=== PATIENT | female | born 1990 | race Caucasian/White ===

== ENCOUNTER 2017-09-02 10:35 | Emergency (ER) | payer MEDICAID ==
[~2017-09-02] VITALS: Ht 157.5 cm; Wt 66.1 kg
[~2017-09-02 10:35] MED LIST: DENIES; IBUP-1542 PO
[2017-09-02 10:40] VITALS: Ht 157.5 cm; Wt 66.1 kg
--- NOTE | 2017-09-02 11:24 | ERD ---
ER Documentation Chief Complaint Chief Complaint ortega x 2 weeks; lightheaded; nausea HPI 26y/o female patient with history of migraines,presents to the emergency department with her c/o headache located fundal area, that started 1 week ago, but is getting progressively worse for the last 2 days. pain is dull, rated 6/10, radiated to occipital area. The symptoms are associated with mild nausea. Denies visual problems, fever, chills, V/D, no weakness or tingling. Positive history of previous episodes. Treatment attempted: Ibuprofen 400 mg without improvement of her symptoms. The patient is status that she has been under a lot of stress at work ROS SYSTEMIC symptoms: no fever, chills, no night sweats, no weight loss EYE symptoms: No blurred vision, no eye discharge OTOLARYNGEAL symptoms: No hearing loss. No ear pain, no sore throat CARDIOVASCULAR symptoms: No chest pain or discomfort, no palpitations. PULMONARY symptoms: No dyspnea, no cough, no wheezing. GASTROINTESTINAL symptoms: No abdominal pain, no nausea, no vomiting, no diarrhea MUSCULOSKELETAL symptoms: No arthralgias, no muscle aches. NEUROLOGY symptoms: No confusion, no syncope, no numbness or tingling. SKIN no rashes All systems reviewed and are negative except as per history of present illness. Medications Home Meds Active Scripts Sumatriptan Succinate* (Sumatriptan Succinate*) 50 Mg Tablet, 50 MG PO BID Y for MIGRAINE HEADACHE, #10 TAB May repeat after 2 hours if needed; MAX 200 mg/24 hours Prov:JONO LEIVA MD 09/02/17 Ibuprofen* (Motrin*) 600 Mg Tab, 600 MG PO Q6, #15 TAB Prov:DIVINA OROZCO NP 02/22/16 Reported Medications [Denies] No Conflict Check 04/18/10 Allergies Allergies: Coded Allergies: No Known Drug Allergies (Verified Allergy, Mild, 09/02/17) PMhx/Soc History of Surgery: No Anesthesia Reaction: No Hx Neurological Disorder: No Hx Respiratory Disorders: Yes (POSSIBLE ASTHMA) Hx Cardiac Disorders: No Hx Psychiatric Problems: No Hx Miscellaneous Medical Probl: No Hx Alcohol Use: No Hx Substance Use: No Hx Tobacco Use: No FmHx Denies family history of hypertension, diabetes, coronary artery disease or cancer Physical Exam Vitals Vital Signs Date Time Temp Pulse Resp B/P Pulse Ox O2 Delivery O2 Flow Rate FiO2 09/02/17 10:40 97.4 78 18 138/76 97 Physical Exam Patient is in no acute distress, vital signs stable. Alert and fully oriented. EYES: PERRLA, EOMI, Sclera and conjunctiva appear normal. EARS: Canals clear, tympanic membranes WNL THROAT: Normal oropharynx. NECK: Supple, No lymphadenopathy. Full ROM without pain or tenderness. HEART: RRR, no rubs, murmurs, clicks or gallops. LUNGS: Clear to auscultation. ABDOMEN: Soft, non-tender without masses or hepatosplenomegaly. EXTREMITIES: No edema bilaterally. MUSC: Full ROM, no deformity, normal back exam Neuro: Grossly intact, motor or sensory deficit Results 24 hrs Laboratory Tests Test 09/02/17 11:40 Urine Color YELLOW Urine Clarity CLOUDY Urine pH 7.0 Urine Specific [place] 1.015 Urine Ketones NEGATIVEmg/dL Urine Nitrite NEGATIVEmg/dL Urine Bilirubin NEGATIVEmg/dL Urine Urobilinogen NEGATIVEmg/dL Urine Leukocyte Esterase NEGATIVELeu/ul Urine Microscopic RBC 2/HPF Urine Microscopic WBC 6/HPF Urine Squamous Epithelial Cells FEW/HPF Urine Amorphous Crystals MANY/HPF Urine Mucus FEW/HPF Urine Hemoglobin NEGATIVEmg/dL Urine Glucose NEGATIVEmg/dL Urine Total Protein NEGATIVEmg/dl Current Medications Medications (Trade) Dose Ordered Sig/Marisol Route PRN Reason Start Time Stop Time Status Last Admin Dose Admin Ketorolac Tromethamine (Toradol) 30 mg ONCE STAT IM 09/02/17 11:28 09/02/17 11:32 DC 09/02/17 11:41 Ondansetron HCl (Zofran Odt) 4 mg ONCE STAT ODT 09/02/17 11:28 09/02/17 11:32 DC 09/02/17 11:41 Procedures/MDM 26y/o female patient history of migraines, presents to the ED c/o migraine headache for 7 days. Vital signs stable, Physical exam unremarkable, neurovascular exam intact. Differential diagnosis include but not limited to: Tension headache, sinusitis, migraine, low suspicion for stroke, tumor. Physical examination and clinical presentation consistent most likely with migraine headache. During the ED course the patient received treatment with Toradol and Zofran presenting overall improvement of the symptoms. Results and clinical impression discussed with patient who agrees with management. The patient will be discharged home with a Rx for Imitrex If symptoms persist, worsen or new symptoms develop, then patient is instructed to follow-up with the primary care provider. If the patient is unable to see the primary care provider, then return to the ED immediately. Departure Diagnosis: Primary Impression: Migraine headache Additional Impression: Stressful job Condition: Stable Additional Instructions: Thank you very much for allowing us to participate in your care. Your health and safety is our top priority at [facility]. Have prescriptions filled and follow precisely the directions on the label. Follow-up with primary care provider during the next 4 days and bring all the information and medications prescribed. If illness has not improved in 2 days, then make an appointment with primary care provider. If the provider is unavailable, return to the Emergency Department immediately. JONO LEIVA MD Sep 02, 2017 11:24
[2017-09-02] MEDS ORDERED: ONDANSETRON (ODT) 4 MG TAB ODT STA (11:28)
[2017-09-02] MEDS ORDERED: KETOROLAC 30 MG INJ IM STA (11:28)
[2017-09-02] MEDS ORDERED: SUMA50TA3 PO (12:13)
== END 2017-09-02 12:21 | disposition home or self-care (01) ==
LOC: FTE 10:35
DX: G43.909 Migraine, unspecified, not intractable, without status migrainosus (principal); Z56.89 Other problems related to employment
CPT/HCPCS: 81001; 96372; J1885; Z7502; Z7610

== ENCOUNTER 2018-10-31 02:29 | Emergency (ER) | payer MEDICAID ==
[~2018-10-31] VITALS: Wt 69.0 kg
[~2018-10-31 02:29] MED LIST changes: +SUMA50TA3 PO
[2018-10-31] MEDS ORDERED: ONDANSETRON 4 MG INJ IV STA (03:41)
[2018-10-31] MEDS ORDERED: morphine 4 MG/ML VIAL IV STA (03:41)
[2018-10-31] MEDS ORDERED: SOD CHLORIDE 0.9% 1,000 ML IV STA (03:41)
[2018-10-31] MEDS ORDERED: ACET500C5 PO (05:24)
[2018-10-31] MEDS ORDERED: ONDA4TAB14 PO (05:24)
[2018-10-31 05:45] VITALS: BP 116/71; PULSE 69; RESP 20
--- NOTE | 2018-10-31 05:49 | ERD ---
ER Documentation Chief Complaint Chief Complaint bib self, cc: n/v x 1 day, works in assisted living with other people n/v HPI 27-year-old female patient with no significant past medical history presents to the ED stating that she works at [employer], and has had 2 days of vomiting and diarrhea similar to patient's at the facility. Patient has had a few episodes of nonbilious nonbloody vomiting, nonmucoid nonbloody diarrhea. Patient reports that she is eating appropriately however has left-sided abdominal pain. States that her last menstruation was on October 01, 2018. Denies any dysuria, urgency, frequency, hematuria, the patient, chest pain, shortness of breath. ROS All systems reviewed and are negative except as per history of present illness. Medications Home Meds Active Scripts Acetaminophen* (Tylophen*) 500 Mg Capsule, 1 CAP PO Q6H PRN for PAIN AND OR ELEVATED TEMP, #20 CAP Prov:BELKIS CISNEROS PA-C 10/31/18 Ondansetron (Ondansetron Odt) 4 Mg Tab.rapdis, 4 MG PO Q6H PRN for NAUSEA AND/OR VOMITING, #10 TAB Prov:BELKIS CISNEROS PA-C 10/31/18 Sumatriptan Succinate* (Sumatriptan Succinate*) 50 Mg Tablet, 50 MG PO BID PRN for MIGRAINE HEADACHE, #10 TAB May repeat after 2 hours if needed; MAX 200 mg/24 hours Prov:JONO LEIVA MD 09/02/17 Ibuprofen* (Motrin*) 600 Mg Tab, 600 MG PO Q6, #15 TAB Prov:DIVINA OROZCO NP 02/22/16 Reported Medications [Denies] No Conflict Check 04/18/10 Allergies Allergies: Coded Allergies: No Known Drug Allergies (Verified Allergy, Mild, 09/02/17) PMhx/Soc Medical and Surgical Hx: pt denies Medical Hx, pt denies Surgical Hx History of Surgery: No Anesthesia Reaction: No Hx Neurological Disorder: No Hx Respiratory Disorders: Yes (POSSIBLE ASTHMA) Hx Cardiac Disorders: No Hx Psychiatric Problems: No Hx Miscellaneous Medical Probl: No Hx Alcohol Use: No Hx Substance Use: No Hx Tobacco Use: No Smoking Status: Never smoker FmHx Family History: No diabetes, No coronary disease Physical Exam Vitals Vital Signs Date Temp Pulse Resp B/P (MAP) Pulse Ox O2 O2 Flow FiO2 Time Delivery Rate 10/31/18 99.2 84 19 132/89 98 02:31 (103) Physical Exam Const: Myy-tbt-[id number], well-nourished. In no acute distress. Head: Atraumatic, normocephalic Eyes: Normal Conjunctiva without injection. No purulent discharge. ENT: Normal external ear, nose. Moist oropharynx without tonsillar exudates. Non-erythematous pharynx. Uvula midline. No drooling. No trismus. Neck: No cervical midline tenderness. Full range of motion. No meningismus. No cervical lymphadenopathy. No JVD. Resp: Clear to auscultation bilaterally. No wheezing, rhonchi, rales, or crackles. No accessory muscle use. No retractions. Cardio: Regular rate and rhythm. No murmurs, rubs or gallops. Abd: Soft, left pelvic tenderness, non distended. Normal bowel sounds. No palpable masses. No rebound tenderness. No guarding. Negative McBurney's point. Negative psoas sign. Negative obturator sign. Skin: No petechiae or rashes Back: No midline tenderness. No CVA tenderness. Ext: No cyanosis, or edema. Neur: Awake and alert. Normal gait. Normal coordination. Psych: Normal Mood and Affect Result Diagram: 10/31/18 0356 10/31/18 0356 Results 24 hrs Laboratory Tests Test 10/31/18 03:56 10/31/18 03:57 White Blood Count 7.4 10^3/ul Red Blood Count 4.21 10^6/ul Hemoglobin 13.9 g/dl Hematocrit 40.8 % Mean Corpuscular Volume 96.9 fl Mean Corpuscular Hemoglobin 33.0 pg Mean Corpuscular Hemoglobin Concent 34.1 g/dl Red Cell Distribution Width 11.9 % Platelet Count 219 10^3/UL Mean Platelet Volume 10.6 fl Immature Granulocytes % 0.300 % Neutrophils % 59.3 % Lymphocytes % 32.5 % Monocytes % 6.0 % Eosinophils % 1.2 % Basophils % 0.7 % Nucleated Red Blood Cells % 0.0 /100WBC Immature Granulocytes # 0.020 10^3/ul Neutrophils # 4.4 10^3/ul Lymphocytes # 2.4 10^3/ul Monocytes # 0.4 10^3/ul Eosinophils # 0.1 10^3/ul Basophils # 0.1 10^3/ul Nucleated Red Blood Cells # 0.0 10^3/ul Urine Color STRAW Urine Clarity CLEAR Urine pH 6.0 Urine Specific [place] 1.004 Urine Ketones NEGATIVE mg/dL Urine Nitrite NEGATIVE mg/dL Urine Bilirubin NEGATIVE mg/dL Urine Urobilinogen NEGATIVE mg/dL Urine Leukocyte Esterase NEGATIVE Victor[place]/ul Urine Hemoglobin NEGATIVE mg/dL Urine Glucose NEGATIVE mg/dL Urine Total Protein NEGATIVE mg/dl Sodium Level 141 mmol/L Potassium Level 4.1 mmol/L Chloride Level 102 mmol/L Carbon Dioxide Level 29 mmol/L Anion Gap 10 Blood Urea Nitrogen 13 mg/dl Creatinine 0.49 mg/dl Est Glomerular Filtrat Rate mL/min > 60 mL/min Glucose Level 103 mg/dl Calcium Level 9.4 mg/dl Total Bilirubin 0.5 mg/dl Direct Bilirubin 0.00 mg/dl Indirect Bilirubin 0.5 mg/dl Aspartate Amino Transf (AST/SGOT) 24 IU/L Alanine Aminotransferase (ALT/SGPT) 27 IU/L Alkaline Phosphatase 47 IU/L Total Protein 7.8 g/dl Albumin 4.5 g/dl Globulin 3.30 g/dl Albumin/Globulin Ratio 1.36 Lipase 59 U/L POC Beta HCG, Qualitative NEGATIVE Current Medications Medications Dose Sig/Marisol Start Time Status Last (Trade) Ordered Route PRN Stop Time Admin Dose Reason Admin Sodium 1,000 ml @ Q1H STAT 10/31/18 DC 10/31/18 Chloride 1,000 mls/hr IV 03:41 10/31/18 03:59 04:40 Morphine 4 mg ONCE STAT 10/31/18 DC 10/31/18 Sulfate IV 03:41 10/31/18 04:00 (morphine) 03:43 Ondansetron 4 mg ONCE STAT 10/31/18 DC 10/31/18 HCl (Zofran IV 03:41 10/31/18 04:00 Inj) 03:43 Procedures/MDM 27-year-old female patient with no significant past medical history presents to ED complaining of pain, diarrhea, left pelvic pain. Patient is afebrile and nontoxic-appearing. Patient was further worked up with CBC, CMP, lipase, UA, pelvic ultrasound. At this time since patient does not have severe abdominal pain, there is low suspicion for acute abdomen, CT of the abdomen and pelvis was considered however the risks of radiation outweigh the benefits. Patient's pain and symptoms have improved after treatment with 1 L normal saline, 4 mg IV Zofran, 4 mg IV morphine. CBC: No leukocytosis. No e/o of systemic infection. No e/o anemia. CMP: No e/o severe acidosis, alkalosis, renal failure, diabetic ketoacidosis, liver disease Lipase within normal limits. Urine: No leukocyte esterase, no nitrites, no hematuria. Urine : Negative IMPRESSION: 1. Unremarkable uterus. Intrauterine device in good location. 2. Normal size ovaries without ultrasonic evidence of ovarian torsion. 2.3 cm left ovarian cyst. 3. Trace fluid in the cul-de-sac. Patient has a left ovarian cyst at 2.3 cm in size. Patient's vomiting and diarrhea likely secondary to viral etiology. Patient has no leukocytosis. Low suspicion for diverticulitis, perforated bowel. She currently has no abdominal pain. Low suspicion for ectopic , ovarian torsion, gastritis, GERD, peptic ulcer disease, cholecystitis, choledocholithiasis, cholangitis, pancreatitis, appendicitis, bowel obstruction, ileus, volvulus, nephrolithiasis, pyelonephritis, hepatitis, perforated viscus, diverticulitis, strangulated/incarcerated hernia, DKA, acute abdomen, mesenteric ischemia or other emergent conditions. Diagnosis: Abdominal pain, Vomiting and diarrhea Discharge medications: Tylenol, Zofran Follow up with primary care physician in 1-2 days. Instructed patient to return to the ED sooner for any worsening symptoms. Patient's questions were answered. Patient is hemodynamically stable. Patient understood and agreed with discharge plan. Patient discharged stable. Disclaimer: Inadvertent spelling and grammatical errors are likely due to EHR/dictation software use and do not reflect on the overall quality of patient care. Also, please note that the electronic time recorded on this note does not necessarily reflect the actual time of the patient encounter. Departure Diagnosis: Primary Impression: Abdominal pain Abdominal location: unspecified location Qualified Codes: R10.9 - Unspecified abdominal pain Additional Impression: Vomiting and diarrhea Condition: Stable Patient Instructions: What Are Ovarian Cysts?, Self-Care for Vomiting and Maday rrhea, Diet, Vomiting Or Diarrhea [6Yr-Adult] Referrals: COMMUNITY CLINICS YOU HAVE RECEIVED A MEDICAL SCREENING EXAM AND THE RESULTS INDICATE THAT YOU DO NOT HAVE A CONDITION THAT REQUIRES URGENT TREATMENT IN THE EMERGENCY DEPARTMENT. FURTHER EVALUATION AND TREATMENT OF YOUR CONDITION CAN WAIT UNTIL YOU ARE SEEN IN YOUR DOCTORS OFFICE WITHIN THE NEXT 1-2 DAYS. IT IS YOUR RESPONSIBILITY TO MAKE AN APPOINTMENT FOR FOLOW-UP CARE. IF YOU HAVE A PRIMARY DOCTOR --you should call your primary doctor and schedule an appointment IF YOU DO NOT HAVE A PRIMARY DOCTOR YOU CAN CALL OUR PHYSICIAN REFERRAL HOTLINE AT IF YOU CAN NOT AFFORD TO SEE A PHYSICIAN YOU CAN CHOSE FROM THE FOLLOWING [facility] [address] [facility]. [facility] [address] [facility]. [facility] [address] [facility] [facility] [address] [facility] [facility] [address] [facility]. [facility] [address] [facility]. [facility] YOU HAVE RECEIVED A MEDICAL SCREENING EXAM AND THE RESULTS INDICATE THAT YOU DO NOT HAVE A CONDITION THAT REQUIRES URGENT TREATMENT IN THE EMERGENCY DEPARTMENT. FURTHER EVALUATION AND TREATMENT OF YOUR CONDITION CAN WAIT UNTIL YOU ARE SEEN IN YOUR DOCTORS OFFICE WITHIN THE NEXT 1-2 DAYS. IT IS YOUR RESPONSIBILITY TO MAKE AN APPOINTMENT FOR FOLOW-UP CARE. IF YOU HAVE A PRIMARY DOCTOR --you should call your primary doctor and schedule and appointment IF YOU DO NOT HAVE A PRIMARY DOCTOR YOU CAN CALL OUR PHYSICIAN REFERRAL HOTLINE AT . IF YOU CAN NOT AFFORD TO SEE A PHYSICIAN YOU CAN CHOSE FROM THE FOLLOWING [facility] INSTITUTIONS: [facility] [address] [place] [address] [facility] [address] [place] [address] [facility] + [facility] [address] [place] [address] [facility]SPECIALTIES [employer] [id number] [facility] [address] [place] [address] OFFICE FAX [facility] [address] [place] [address] [address] BR[address]KS HASKINS [address] [place] [address] [address] [facility] [address], [address], [facility] [address] [address] MARINELLI, [facility] [address] [place] [address] [facility] [address] [place] [address] [address] [facility] [address] - [address] BERMAN, [facility] [address] [facility]. [address], [facility] [address] [address] MCKINLEY, [place] [address] [facility]. [address], [facility] [address] [address] CHARLES, [facility] [address] [place], [place] [id number] [facility] Hours: 8:00 am - 5:00 pm Additional Instructions: Call your primary care doctor TOMORROW for an appointment during the next 2-3 days.See the doctor sooner or return here if your condition worsens before your appointment time. BELKIS CISNEROS PA-C Oct 31, 2018 05:49
== END 2018-10-31 05:47 | disposition home or self-care (01) ==
LOC: FTE 02:29
DX: R10.9 Unspecified abdominal pain (principal); R19.7 Diarrhea, unspecified; R10.2 Pelvic and perineal pain
CPT/HCPCS: 36415; 76856; 80053; 81003; 81025; 83690; 85025; 96374; 96375; J2270; J2405; J7030; Z7502

== ENCOUNTER 2018-11-09 22:09 | Emergency (ER) | payer SELFPAY ==
[~2018-11-09] VITALS: Ht 157.5 cm; Wt 68.1 kg
[~2018-11-09 22:09] MED LIST changes: +ACET500C5 PO; +ONDA4TAB14 PO
[2018-11-09 22:13] VITALS: BP 138/69; PULSE 97; RESP 22; Ht 157.5 cm; Wt 68.1 kg
== END 2018-11-09 23:00 | disposition left against medical advice (07) ==
LOC: FTE 22:09
DX: Z53.21 Procedure and treatment not carried out due to patient leaving prior to being seen by health care provider (principal)
CPT/HCPCS: 93005

== ENCOUNTER 2019-02-04 19:32 | Emergency (ER) | payer MEDICAID ==
[~2019-02-04] VITALS: Wt 64.0 kg
[2019-02-04 19:36] VITALS: BP 140/75; PULSE 85; RESP 18; Wt 64.0 kg
--- NOTE | 2019-02-04 20:29 | ERD ---
ER Documentation Chief Complaint Chief Complaint CWP FOR 1 MO. INTERMITTENT WITH NO COUGHING. NO SOB. WORSE WITH INSPIRATION HPI History of Present Illness: Patient coming in today with complaint of chest wall pain for 1 month that is worsening. Patient reports pain is intermittent, currently 8/10. Patient describes episodes as intermittent sharp pain, but there is always discomfort present. Denies any other associated symptoms. Denies shortness of breath, palpitations, difficulty breathing. Patient also reporting intermittent hives for the past 5 days which is occurred once a day, but has occurred 4 times today. At home pharmacological/nonpharmacological treatment for symptoms: denies Denies social concerns; Denies recent foreign travel ROS All systems reviewed and are negative except as per history of present illness. Medications Home Meds Active Scripts Prednisone* (Prednisone*) 20 Mg Tab, 40 MG PO DAILY for chest wall inflammation for 4 Days, TAB Prov:HILARY ANTONIO NP 02/04/19 Naproxen* (Naprosyn*) 500 Mg Tablet, 500 MG PO BID PRN for PAIN AND/OR INFLAMMATION, #30 TAB take every 12 hours for 7 days, then take every 12 hours after 7-day. Prov:HILARY ANTONIO NP 02/04/19 Diazepam* (Diazepam*) 10 Mg Tablet, 10 MG PO QHS for chest muscle tightness, #10 TAB Prov:HILARY ANTONIO NP 02/04/19 Acetaminophen* (Tylophen*) 500 Mg Capsule, 1 CAP PO Q6H PRN for PAIN AND OR ELEVATED TEMP, #20 CAP Prov:BELKIS CISNEROS PA-C 10/31/18 Ondansetron (Ondansetron Odt) 4 Mg Tab.rapdis, 4 MG PO Q6H PRN for NAUSEA AND/OR VOMITING, #10 TAB Prov:BEKLIS CISNEROS PA-C 10/31/18 Sumatriptan Succinate* (Sumatriptan Succinate*) 50 Mg Tablet, 50 MG PO BID PRN for MIGRAINE HEADACHE, #10 TAB May repeat after 2 hours if needed; MAX 200 mg/24 hours Prov:JONO LEIVA MD 09/02/17 Ibuprofen* (Motrin*) 600 Mg Tab, 600 MG PO Q6, #15 TAB Prov:DIVINA OROZCO NP 02/22/16 Reported Medications [Denies] No Conflict Check 04/18/10 Allergies Allergies: Coded Allergies: No Known Drug Allergies (Verified Allergy, Mild, 09/02/17) PMhx/Soc Medical and Surgical Hx: pt denies Medical Hx, pt denies Surgical Hx History of Surgery: No Anesthesia Reaction: No Hx Neurological Disorder: No Hx Respiratory Disorders: Yes (POSSIBLE ASTHMA) Hx Cardiac Disorders: No Hx Psychiatric Problems: No Hx Miscellaneous Medical Probl: No Hx Alcohol Use: No Hx Substance Use: No Hx Tobacco Use: No Smoking Status: Never smoker FmHx Family History: diabetes; No coronary disease Physical Exam Vitals Physical Exam Const: No acute distress Head: Atraumatic Eyes: Normal Conjunctiva ENT: Normal External Ears, Nose and Mouth. Neck: Full range of motion. No meningismus. Resp: Clear to auscultation bilaterally Cardio: Regular rate and rhythm, no murmurs. Tenderness to palpation over midsternal and left chest and right chest. Abd: Soft, non tender, non distended. Normal bowel sounds Skin: No petechiae or rashes Back: No midline or flank tenderness; tenderness to palpation over paraspinal thoracic region Ext: No cyanosis, or edema Neur: Awake and alert Psych: Normal Mood and Affect Results 24 hrs Laboratory Tests Test 02/04/19 20:43 02/04/19 20:49 02/04/19 20:50 Urine Test NEGATIVE Urine Color YELLOW Urine Clarity CLEAR Urine pH 6.0 Urine Specific [place] 1.017 Urine Ketones NEGATIVE mg/dL Urine Nitrite NEGATIVE mg/dL Urine Bilirubin NEGATIVE mg/dL Urine Urobilinogen NEGATIVE mg/dL Urine Leukocyte Esterase NEGATIVE Victor[place]/ul Urine Hemoglobin NEGATIVE mg/dL Urine Glucose NEGATIVE mg/dL Urine Total Protein NEGATIVE mg/dl POC Beta HCG, Qualitative NEGATIVE Current Medications Medications Dose Sig/Marisol Start Time Status Last (Trade) Ordered Route PRN Stop Time Admin Dose Reason Admin Diazepam 10 mg ONCE ONCE 02/04/19 DC 02/04/19 (Valium) PO 21:00 21:04 02/04/19 21:02 Ketorolac 60 mg ONCE STAT 02/04/19 DC 02/04/19 Tromethamine IM 20:58 21:04 (Toradol) 02/04/19 20:59 6 mg ONCE ONCE 02/04/19 DC 02/04/19 Dexamethasone IM 23:00 22:45 (Decadron) 02/04/19 23:01 Procedures/MDM ED course includes a thorough examination and history. Medications: Ketorolac for pain/inflammation; Valium for muscle relaxer/anxiety; dexamethasone for hives and chest wall inflammation Imaging: --- Labs: POC hCG urine EKG completed at 1940: Rate/Rhythm: Normal Sinus Rhythm, ventricular rate 69 QRS, ST, T-waves: No changes consistent w/ acute ischemia Impression: No evidence of ischemia or arrhythmia Low suspicion for life-threatening medical emergency. Low suspicion for coronary pulmonary emergency requires hospitalization or immediate surgical intervention. Low suspicion for pulmonary embolism, acute cardiac event, pleural effusion, pneumothorax. Otherwise healthy patient presenting with constellation of symptoms likely representing uncomplicated chest wall pain secondary to work-related stress as characterized by history, physical exam findings, lab findings. Negative urine . No respiratory distress, otherwise relatively well appearing and nontoxic. At time of disposition, patient reporting significant decrease in chest wall tightness; patient was asleep upon arrival to room. Patient educated on diagnoses, prescriptions, follow-up care, return precautions. Strict return precautions given for worsening condition; questions answered discharge. Education provided for removing triggers that are causing stress. Will give patient 1 day off from work for mental health day. Continue use of antihistamines for hives at home and recommended following up with primary care doctor for referral to risk consultant. No signs of airway compromise. Disposition for discharge with followup in 2 days with PCP/clinic. Departure Diagnosis: Primary Impression: Chest wall pain Additional Impression: Work-related stress Condition: Stable SUNSHINE GOLD PA-C Feb 04, 2019 20:28 HILARY ANTONIO NP Feb 04, 2019 23:08
[2019-02-04] MEDS ORDERED: KETOROLAC 60 MG INJ IM STA (20:58)
[2019-02-04] MEDS ORDERED: DIAZEPAM 5 MG TAB PO ONE (21:00)
[2019-02-04] MEDS ORDERED: PRED20TA PO (22:40)
[2019-02-04] MEDS ORDERED: NAPR-985 PO (22:40)
[2019-02-04] MEDS ORDERED: DIAZ10TA4 PO (22:40)
[2019-02-04] MEDS ORDERED: DEXAMETHASONE 10 MG/ML 1 ML INJ IM ONE (23:00)
== END 2019-02-04 23:18 | disposition home or self-care (01) ==
LOC: FTE 19:32
DX: R07.89 Other chest pain (principal); Z56.6 Other physical and mental strain related to work
CPT/HCPCS: 76705; 81003; 81025; 84703; 93005; 96372; J1100; J1885; Z7502; Z7610